=== PATIENT | female | born 1975 | race Caucasian/White ===

== ENCOUNTER → 2016-10-05 | Outpatient (CLI) | payer OTHER ==
[~2016-10-05] MED LIST: ACYCLOVIR PO; ACYCLOVIR200 MG; ACYCLOVIR400 MG PO; ALBUTEROL17 G1 IH; AUGMENTIN PO; BACTRIM DS TABL1 TA1 PO; BENZONATATE PO; DARVOCET-N 1001 TAB; DOXYCYCLINE HY100 M3 PO; LORTAB 10/500 T1 TAB; METHADONE PO; MORPHINE IR; NO MEDICATIONS; PAIN MEDS; PHENERGAN25 MG PO; PREDNISONE PO; PRILOSEC20 M1 PO; PROVENTIL17 GM IH; SEROQUEL PO; SEROQUEL400 MG PO; VALTREX PO; ZANTAC150 MG PO; ZOVIRAX800 MG PO
--- NOTE | ~2016-10-05 | MR2 ---
[facility] A Service of [facility] RADIOLOGY TEXT RESULTS PATIENT: KASSI AZUL [facility] : 79 UNIT #: [id number] AGE: [address]: Rory Galvan MD SEX: F ORDER DR: [id number] [facility] [address] [place], [place] [address] [id number] O MR#: [id number] Acc #: [id number] NAME: KASSI AZUL : 1975 SEX: F STUDY DATE/TIME: 10/05/2016 15:02 UNIT: [facility] ROOM: STUDY DESCRIPTION: MR Abdomen WWo Cont Attending Physician: Rory Galvan M.D. Referring Physician: Rory Galvan M.D. Ordering Physician: Rory Galvan M.D. Primary Care Physician: [facility] RE[facility] This report is preliminary unless electronic signature is present. EXAM MRI abdomen, with and without contrast. HISTORY Liver mass on previous CT. Further characterization. Urinary tract infection approximately 1 month ago. PROCEDURE Multiplanar multisequence MR imaging of the abdomen prior to and following 13 mL of MultiHance. COMPARISON STUDIES CT from 08/17/2016. FINDINGS ABDOMEN WITHOUT CONTRAST: Liver measures 17.7 cm and has normal morphology. The spleen measures 11 cm and has normal signal. The kidneys show normal signal intensity. There are 2 stones in the gallbladder, measuring up to 11 mm. No evidence for gallbladder inflammation. The common duct is prominent, measuring up to 10 mm. No evidence for choledocholithiasis or an obstructing mass. There is a small periampullary duodenal diverticulum that measures approximately 9 mm. This is immediately adjacent to the distal common duct. No pancreatic head mass is seen. The pancreatic duct is nondilated. Adrenal glands have normal signal. Bowel loops are nondilated. No abdominal fluid. ABDOMEN WITH CONTRAST: Postcontrast sequences are mildly motion-degraded. There is an early enhancing mass in subcapsular anterior right hepatic lobe that measures 2.6 cm. This lesion shows early enhancement, but is relatively isointense to the liver on the other postcontrast sequences, as STS. [facility] A Service of [facility] RADIOLOGY TEXT RESULTS PATIENT: KASSI AZUL LOCATION: [facility] : 79 UNIT #: [id number] AGE: [address]: Rory Galvan MD SEX: F ORDER DR: well as the precontrast sequences. No other liver lesion is seen. The hepatic artery is not well-evaluated. The portal vein is patent. No abnormal enhancement is seen elsewhere in the abdomen. IMPRESSION 1. A 2.6-cm early enhancing mass in the anterior right hepatic lobe. 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 No other liver mass is seen on this study. 2. Uncomplicated cholelithiasis. 3. Prominence of the common duct for the patient's age without evidence for choledocholithiasis or an obstructing pancreatic mass. There is a 9-mm periampullary duodenal diverticulum. 4. Kidneys show normal signal and enhancement on this study. Dictated by... Tj Ackerman M.D. THIS IS AN ELECTRONICALLY VERIFIED REPORT Tj Ackerman M.D. at 10/07/2016 7:04 AM Enoch TD: 10/06/2016 13:45 JOB #: [id number] [facility] REPORT COPY
== END | disposition home or self-care (01) ==
LOC: CMRI 14:24
DX: K76.9 Liver disease, unspecified (principal); R10.9 Unspecified abdominal pain; R63.4 Abnormal weight loss; R16.0 Hepatomegaly, not elsewhere classified; K80.20 Calculus of gallbladder without cholecystitis without obstruction; K57.10 Diverticulosis of small intestine without perforation or abscess without bleeding
CPT/HCPCS: 74183; A9577

== ENCOUNTER 2016-10-11 07:49 | Emergency (ER) | payer OTHER ==
[~2016-10-11 07:49] MED LIST changes: -NO MEDICATIONS
[2016-11-17] MEDS ORDERED: NO MEDICATIONS (09:52)
== END 2016-10-11 09:56 | disposition home or self-care (01) ==
LOC: CED 07:49
DX: R19.7 Diarrhea, unspecified (principal); F19.10 Other psychoactive substance abuse, uncomplicated; F17.210 Nicotine dependence, cigarettes, uncomplicated
CPT/HCPCS: 96360; 96361; 99284

== ENCOUNTER → 2016-10-12 | Outpatient (CLI) | payer OTHER ==
[~2016-10-12] MED LIST changes: +NO MEDICATIONS
[2016-10-12 12:55] LABS: BASOPHIL% 0.5 % (0-2.5); EOSINOPHIL# 0.3 X10e3 (0-0.7); EOSINOPHIL% 3.1 % (0.0-7.0); HEMATOCRIT 40.4 % (35.0-45.0); HEMOGLOBIN 13.2 gm/dL (12.0-16.0); LYMPHOCYTE# 2.6 X10e3 (1.0-3.5); MEAN CELL VOLUME 94.7 FL (83-96); MEAN CORPUSCULAR HEMOGLOBIN 30.9 PG (28-34); MEAN CORPUSCULAR HGB CONC 32.6 g/dL (30-36); MEAN PLATELET VOLUME 8.5 FL (6.5-11.5); MONOCYTE# 0.7 X10e3 (0-1.0); MONOCYTE% 8.3 % (3.0-12.0); NEUTROPHIL# 4.6 X10e3 (1.5-7.1); NEUTROPHIL% 56.1 % (40-75); PLATELET COUNT 300 X10e3 (140-420); RED BLOOD COUNT 4.27 X10e (3.90-5.30); RED CELL DISTRIBUTION WIDTH 14.1 % (11.0-15.5); WHITE BLOOD COUNT 8.2 X10e3 (4.0-10.5)
[2016-10-12 12:56] LABS: DIFF IND NO
[2016-10-12 13:25] LABS: ALBUMIN SERUM 3.6 g/dL (3.5-5.0); ALKALINE PHOSPHATASE 78 U/L (32-92); ALT (SGPT) 52 U/L (10-40); AST (SGOT) 56 U/L (10-42); BILIRUBIN,TOTAL 0.4 mg/dL (0.2-2.0); BLOOD UREA NITROGEN 16 mg/dL (9-23); BUN/CREATININE RATIO 22.85; CALCIUM SERUM 8.8 mg/dL (8.4-10.2); CARBON DIOXIDE 29 mmol/L (22-31); CHLORIDE 107 mmol/L (100-111); CREATININE SERUM 0.7 mg/dL (0.6-1.4); GLOM FILT RATE Estimated ABOVE60 mL/min (>60); GLUCOSE FASTING 102 mg/dL (70-110); POTASSIUM 4.2 mmol/L (3.5-5.1); PROTEIN TOTAL SERUM 6.5 g/dL (6.0-8.3); SODIUM 139 mmol/L (135-145)
== END | disposition home or self-care (01) ==
LOC: CLAB 12:26
PROVIDERS: Internal Medicine
DX: K76.9 Liver disease, unspecified (principal)
CPT/HCPCS: 36415; 80053; 82105; 85025